=== PATIENT | male | born 1945 | race Caucasian/White ===

== ENCOUNTER → 2016-10-29 | Outpatient (CLI) | payer MEDICARE, MEDICAID ==
[~2016-10-29] MED LIST: AMBIEN10 M1 ORAL; AMBIEN10 MG PO; AMIODARONE HCL200 MG ORAL; ARICEPT10 MG PO; ASPIRIN81 M1 PO; AVODART0.5 MG ORAL; BENADRYL25 M1 PO; CLONAZEPAM0.5 MG PO; COGENTIN1 MG ORAL; COMPAZINE10 MG PO; DEPAKOTE ER500 MG PO; DIGOXIN0.25 MG/5 PO; DONEPEZIL HCL10 M2 ORAL; FLEXERIL10 MG PO; FLOMAX0.4 MG ORAL; FUROSEMIDE20 M1 ORAL; LACTULOSE20 GM/30 M PO; LATUDA60 MG PO; LIPITOR20 MG ORAL; LOPRESSOR25 M1 ORAL; METOPROLOL TART50 MG ORAL; NAMENDA5 MG ORAL; NAMENDA5 MG PO; NAPROSYN500 MG PO; OXYCODONE HCL15 M1 ORAL; PAXIL20 MG ORAL; POTASSIUM CHLO10 MEQ ORAL; PRAVASTATIN SOD80 MG PO; QUETIAPINE FUM200 MG PO; SINEMET 25-1001 EAC1 ORAL; SINEMET 25/1001 EA ORAL; TAMSULOSIN HCL0.4 MG ORAL; TEMAZEPAM30 MG ORAL; VESICARE5 MG ORAL; WELCHOL625 MG ORAL; XARELTO10 MG ORAL
--- NOTE | 2016-10-29 16:53 | Diagnostic Imaging Report ---
Indication: COUGH Technique: 2 views of the chest Comparison: 07/28/2014. Findings: Lungs and pleural spaces are clear. Heart size is normal. Bones are unremarkable.. Impression: No acute process No significant change
== END | disposition home or self-care (01) ==
LOC: RAD 15:47
DX: R05 Cough (principal)
CPT/HCPCS: 71020

== ENCOUNTER 2017-12-31 05:54 | Observation (INO) | payer MEDICARE, MEDICAID ==
--- NOTE | 2017-12-24 11:46 | Diagnostic Imaging Report ---
Indication: Cough Comparison: 10/29/2016 2 views of the chest obtained. Findings: Cardiomediastinal silhouette and pulmonary vascularity are within normal limits for age. The diaphragmatic contour is smooth and costophrenic angles are sharp. No pleural effusions are identified. The bones are unremarkable. Impression: No acute disease
[~2017-12-31] VITALS: Ht 165.1 cm; Wt 57.6 kg
[2017-12-31] VITALS (11 sets, daily range): BP systolic 90–119; BP diastolic 41–85
--- NOTE | 2017-12-31 06:28 | Anethesia Preoperative Eval ---
Anesthesia Pre-op PMH/ROS General Date of Evaluation: December 31, 2017 Anesthesiologist: Moe ASA Score: ASA 3 Mallampati Score Class I : Soft palate, uvula, fauces, pillars visible Class II: Soft palate, uvula, fauces visible Class III: Soft palate, base of uvula visible Class IV: Only hard plate visible Mallampati Classification: Class II Surgeon: Geraldo Diagnosis: Bilateral inguinal hernias Surgical Procedure: Bilateral inguinal hernia repair Anesthesia History: none Family History: no anesthesia problems Allergies: Coded Allergies: No Known Allergies (Verified , 06/21/07) Medications: see eMAR Past Medical History Cardiovascular: Reports: HTN, arrhythmia - Afib, aortic valve, other - CHF, HLD ; Denies: CAD, ID, valve dz Pulmonary: Denies: asthma, COPD, WES, other Gastrointestinal/Genitourinary: Reports: GERD; Denies: CRI, ESRD, other Neurologic/Psychiatric: Reports: dementia, depression/anxiety; Denies: CVA, TIA, other Endocrine: Denies: DM, hypothyroidism, steroids, other HEENT: Denies: cataract (L), cataract (R), glaucoma, [place] (L), [place] (R), other Hematology/Immune: Reports: anemia - chronic; Denies: DVT, bleeding disorder, other Musculoskeletal/Integumentary: Reports: OA, DJD; Denies: RA, DDD, edema, other PSxH Narrative: back sx, turp Anesthesia Pre-op Phys. Exam Physician Exam see chart Constitutional: NAD Cardiovascular: RRR Respiratory: CTA Airway Exam Mallampati Score: Class II MO: full ROM: full Teeth: missing Anesthesia Pre-op A/P Labs see chart Studies Pre-op Studies: EKG - sr Risk Assessment & Plan Assessment: ASA III Plan: GA-ETT Status Change Before Surgery: No Pre-Antibiotics Drug: Ancef 1g Given Within 1 Hr of Incision: Yes Time Given: 08:20 EDUARDO ALCANTARA M.D. December 31, 2017 06:28
[2017-12-31] MEDS ORDERED: Zemuron 50mg/5ml Inj IV ONE ×2 (06:30→08:00)
[2017-12-31] MEDS ORDERED: AMITIZA24 MCG ORAL (06:41)
[2017-12-31] MEDS ORDERED: TORSEMIDE20 MG ORAL (06:41)
[2017-12-31] MEDS ORDERED: VITAMIN D1000 UNI1 ORAL (06:41)
[2017-12-31] MEDS ORDERED: SERTRALINE HCL25 MG ORAL (06:41)
[2017-12-31] MEDS ORDERED: LYRICA75 M1 ORAL (06:41)
[2017-12-31] MEDS ORDERED: DICYCLOMINE HCL10 MG PO (06:41)
[2017-12-31 07:32] LABS: BASOPHILS % (AUTO) 1.2 % (0.0-2.0); EOSINOPHILS % (AUTO) 3.1 % (0.0-3.0); HEMATOCRIT 34.8 % (42.0-52.0); HEMOGLOBIN 11.6 G/DL (14.2-18.0); LYMPHOCYTES % (AUTO) 31.9 % (20.0-45.0); MEAN CORPUSCULAR VOLUME 95 FL (80-99); MONOCYTES % (AUTO) 12.9 % (1.0-10.0); PLATELET COUNT 173 K/UL (150-450); RED BLOOD COUNT 3.66 M/UL (4.70-6.10); RED CELL DISTRIBUTION WIDTH 11.6 % (11.6-14.8); WHITE BLOOD COUNT 6.8 K/UL (4.8-10.8)
[2017-12-31 07:37] LABS: ANION GAP 8 mmol/L (5-15); BLOOD UREA NITROGEN 30 mg/dL (7-18); CALCIUM 9.2 MG/DL (8.5-10.1); CARBON DIOXIDE 30 MMOL/L (21-32); CHLORIDE 105 MMOL/L (98-107); CREATININE 1.3 MG/DL (0.55-1.30); POTASSIUM 3.6 MMOL/L (3.5-5.1); SODIUM 143 MMOL/L (136-145)
[2017-12-31] MEDS ORDERED: EPINEPHrine 1mg/1ml Amp ONE (07:45)
[2017-12-31] MEDS ORDERED: Bupivacaine 0.5% Inj 30 ml vial INJ ONE (07:45)
[2017-12-31] MEDS ORDERED: Propofol 200mg/20ml IV ONE (07:50)
[2017-12-31] MEDS ORDERED: fentaNYL 100 mcg/2 mL IV ONE (07:50)
[2017-12-31] MEDS ORDERED: Midazolam 2mg/2ml Inj ONE (07:50)
--- NOTE | 2017-12-31 07:50 | Pre-Procedure Note/Attestation ---
Pre-Procedure Note/Attestation Complete Prior to Procedure Planned Procedure: bilateral Procedure Narrative: laparoscopic possible open bilateral inguinal hernia repair with mesh Indications for Procedure Pre-Operative Diagnosis: bilateral inguinal hernia Attestation I attest that I discussed the nature of the procedure; its benefits; risks and complications; and alternatives (and the risks and benefits of such alternatives ), prior to the procedure, with the patient (or the patient's legal maintenance representative). I attest that, if there was a reasonable possibility of needing a blood transfusion, the patient (or the patient's legal maintenance representative) was given the [facility] standardized written summary, pursuant to the [place] Blood Safety Act ([place] Health and Safety Code # 1645, as amended). I attest that I re-evaluated the patient just prior to the surgery and that there has been no change in the patient's H&P, except as documented below: Christiano Chow December 31, 2017 07:50
--- NOTE | 2017-12-31 07:56 | Consultation ---
History of Present Illness Present Illness HPI 72 year old male was referred to Dr. Chow for evaluation of groin pain. Patient has noted groin pain for sometime now L>R. Was recently visiting his PCP who noted a hernia and referred patient for evaluation by a surgeon. patient otherwise doing okay. no signs or symptoms of obstruction. no n/v/f/ c. no prior incarceration. usually reducible. pain which is a discomfort and worse some days. please refer to office not for details. Allergies: Coded Allergies: No Known Allergies (Verified , 06/21/07) Medication History Scheduled Cholecalciferol (Vitamin D3)* (Vitamin D*), 1,000 UNIT ORAL DAILY, (Reported) Dicyclomine Hcl* (Dicyclomine Hcl*), 10 MG PO QID, (Reported) Lubiprostone (Amitiza*), 24 MCG ORAL EVERY 12 HOURS, (Reported) Metoprolol Tartrate (Metoprolol Tartrate), 25 MG ORAL Q12HR, (Reported) Pregabalin* (Lyrica*), 75 MG ORAL BID, (Reported) Rivaroxaban (Xarelto*), 20 MG ORAL QPM Sertraline Hcl* (Sertraline Hcl*), 50 MG ORAL DAILY, (Reported) Torsemide* (Demadex*), 20 MG ORAL DAILY, (Reported) Scheduled PRN Temazepam* (Temazepam*), 30 MG ORAL BEDTIME PRN for Insomnia, (Reported) Discontinued Medications Carbidopa/Levodopa 25-100 Mg* (Sinemet 25-100 Mg Tablet*), 2 TAB ORAL THREE TIMES A DAY, (Reported) Discontinued Reason: MD discontinued med Furosemide* (Lasix*), 20 MG ORAL DAILY, (Reported) Discontinued Reason: MD discontinued med Tamsulosin HCl (Flomax), 0.4 MG ORAL DAILY, (Reported) Discontinued Reason: MD discontinued med Patient History History Provided By: Patient, Medical Record, Caregiver, PMD Healthcare decision maker Resuscitation status Advanced Directive on File No Past Medical/Surgical History Past Medical/Surgical History: (1) Multiple injuries due to trauma (2) Fall (3) Generalized weakness (4) Unable to ambulate (5) Generalized weakness (6) Depression (7) BPH (benign prostatic hyperplasia) (8) Altered mental status (9) Confusional state (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 (13) Proteinuria (14) Small bowel obstruction (15) UTI (urinary tract infection) (16) History of atrial fibrillation (17) Dehydration (18) SBO (small bowel obstruction) (19) Parkinson disease (20) Atrial fibrillation with RVR Review of Systems All Other Systems: negative except mentioned in HPI Physical Exam General Appearance: no apparent distress Lines, tubes and drains: peripheral HEENT: PERRL Neck: normal inspection Respiratory/Chest: lungs clear, normal breath sounds, no respiratory distress, no accessory muscle use Cardiovascular/Chest: normal peripheral pulses Abdomen: non tender, soft, no organomegaly, no mass, hernia Genitourinary/Rectal: normal genital exam Extremities: normal range of motion Skin Exam: normal pigmentation Neurologic: alert, oriented x 3 Last 24 Hour Vital Signs Date Time Temp Pulse Resp B/P (MAP) Pulse Ox O2 Delivery O2 Flow Rate FiO2 12/31/17 06:49 97.9 55 18 101/56 100 Room Air 97.9 Laboratory Tests Test 12/31/17 07:00 White Blood Count 6.8 K/UL (4.8-10.8) Red Blood Count 3.66 M/UL (4.70-6.10) L Hemoglobin 11.6 G/DL (14.2-18.0) L Hematocrit 34.8 % (42.0-52.0) L Mean Corpuscular Volume 95 FL (80-99) Mean Corpuscular Hemoglobin 31.6 PG (27.0-31.0) H Mean Corpuscular Hemoglobin Concent 33.2 G/DL (32.0-36.0) Red Cell Distribution Width 11.6 % (11.6-14.8) Platelet Count 173 K/UL (150-450) Mean Platelet Volume 7.0 FL (6.5-10.1) Neutrophils (%) (Auto) 51.0 % (45.0-75.0) Lymphocytes (%) (Auto) 31.9 % (20.0-45.0) Monocytes (%) (Auto) 12.9 % (1.0-10.0) H Eosinophils (%) (Auto) 3.1 % (0.0-3.0) H Basophils (%) (Auto) 1.2 % (0.0-2.0) Prothrombin Time Pending Prothromb Time International Ratio Pending Activated Partial Thromboplast Time Pending Sodium Level 143 MMOL/L (136-145) Potassium Level 3.6 MMOL/L (3.5-5.1) Chloride Level 105 MMOL/L (98-107) Carbon Dioxide Level 30 MMOL/L (21-32) Anion Gap 8 mmol/L (5-15) Blood Urea Nitrogen 30 mg/dL (7-18) H Creatinine 1.3 MG/DL (0.55-1.30) Estimat Glomerular Filtration Rate mL/min (>60) Glucose Level 87 MG/DL (74-106) Calcium Level 9.2 MG/DL (8.5-10.1) Height (Feet): 5 Height (Inches): 5.00 Weight (Pounds): 127 Assessment/Plan Problem List: (1) Inguinal hernia bilateral, non-recurrent Assessment & Plan: 72M with symptomatic bilateral inguinal hernia. repair indicated and recommended. seen by PCP pre op for clearance. had EGD two days ago which he stopped anticoagulants for 7 days prior. other meds taken. labs reviewed. to OR for lap vs open bilateral inguinal hernia repair with mesh consent pre op ICD Codes: K40.20 - Bilateral inguinal hernia, without obstruction or gangrene , not specified as recurrent SNOMED: [id number] Qualifiers: Qualified Codes: K40.20 - Bilateral inguinal hernia, without obstruction or gangrene, not specified as recurrent Status: stable Christiano Chow December 31, 2017 07:56
[2017-12-31] MEDS ORDERED: Sterile Water Irrig 1000ml IRRIG ONE (08:00)
[2017-12-31] MEDS ORDERED: Lidocaine 1% MPF 10mg/ml 5ml ONE (08:00)
[2017-12-31] MEDS ORDERED: NS Irrig 1000ml ONE (08:00)
[2017-12-31] MEDS ORDERED: LR 1000ml 1,000 ML IVLG SCH (08:24)
[2017-12-31] MEDS ORDERED: fentaNYL 100 mcg/2 mL IV PRN (08:30)
[2017-12-31] MEDS ORDERED: LORazepam Inj 2mg/ml 1ml IV PRN (08:30)
[2017-12-31] MEDS ORDERED: DiphenhydrAMINE 50mg/ml Inj IVP PRN (08:30)
[2017-12-31] MEDS ORDERED: NS Irrig 1000ml IRRIG ONE (08:34)
[2017-12-31] MEDS ORDERED: ceFAZolin sod 2 GM in D5W 110 ML IV SCH (09:00)
[2017-12-31] MEDS ORDERED: Bacitracin 50000 Units Vial ONE (09:15)
--- NOTE | 2017-12-31 09:49 | Immediate Post-Op Evaluation ---
Immediate Post-Op Evalulation Immediate Post-Op Evalulation Procedure: Laparoscopic bilateral inguinal hernia repairs Date of Evaluation: December 31, 2017 Time of Evaluation: 09:50 IV Fluids: 400 Blood Products: 0 Estimated Blood Loss: min Urinary Output: 0 Blood Pressure Systolic: 114 Blood Pressure Diastolic: 57 Pulse Rate: 65 Respiratory Rate: 16 O2 Sat by Pulse Oximetry: 100 Temperature (Fahrenheit): 99.3 Pain Score (1-10): 0 Nausea: No Vomiting: No Complications 0 Patient Status: awake, reacts, patent, none Hydration Status: adequate Drug: Ancef 1g Given Within 1 Hr of Incision: Yes Time Given: 08:20 EDUARDO ALCANTARA M.D. December 31, 2017 09:49
--- NOTE | 2017-12-31 11:04 | Brief Operative Note ---
Immediate Post Operative Note Operative Note Pre-op Diagnosis: bilateral inguinal hernia Procedure: lap right inguinal hernia repair with mesh Post-op Diagnosis: 1. right indirect inguinal hernia Surgeon: juan david Anesthesiologist: kanu Anesthesia: general Specimen: none Complications: none Condition: stable Fluids: see records Estimated Blood Loss: none Implant(s) used?: Yes - bard 3d fitted right sided mesh medium Christiano Chow December 31, 2017 11:04
[2017-12-31] MEDS ORDERED: Milk of Magnesia 30ml Ud ORAL PRN (11:15)
[2017-12-31] MEDS ORDERED: Morphine Sulfate 4mg/ml Inj IVP PRN (11:15)
[2017-12-31] MEDS ORDERED: Sennosides 8.6mg ORAL PRN (11:15)
[2017-12-31] MEDS: Norco 5mg/325mg tab ORAL PRN ×2 (13:00→17:15)
[2017-12-31] MEDS: ceFAZolin sod 2 GM in D5W 110 ML IV SCH (16:16)
[2017-12-31] MEDS: Docusate 100mg cap ORAL SCH (17:15)
[2017-12-31] MEDS: HYDROcodone/Acetamin 10/325 tab ORAL PRN (21:59)
--- NOTE | 2017-12-31 22:15 | Operative Note - Dictated ---
DATE OF OPERATION: 12/31/2017 PREOPERATIVE DIAGNOSIS: Bilateral inguinal hernia. POSTOPERATIVE DIAGNOSIS: Right indirect inguinal hernia. No left hernia. OPERATION PERFORMED: Laparoscopic right inguinal hernia repair with mesh. ATTENDING SURGEON: Christiano Chow M.D. CERTIFIED HEARING INSTRUMENT DISPENSER: None. ANESTHESIOLOGIST: Dr. Rosa. ANESTHESIA: General TUNNELING MACHINE OPERATOR. ESTIMATED BLOOD LOSS: Minimal. IV FLUIDS: Please see anesthesia records. COMPLICATIONS: None. WOUND CLASSIFICATION: Class 1. COUNTS: Sponge and needle count correct x2. DRAINS: None. IMPLANTS: Bard 3D mesh, right-sided, medium. INDICATIONS FOR PROCEDURE: This is a 72-year-old male, who was referred to Dr. Chow for evaluation of inguinal hernias. The patient has noted that he has felt a bulge and discomfort in the right groin for some time now and his pain has been progressively worsening and bulge is becoming larger. He saw his primary care physician, who referred him to Dr. Chow for surgical evaluation. The patient was seen in the office and identified to have a reducible right inguinal hernia and potentially a left inguinal hernia. Surgery was indicated and recommended. Plan was for a laparoscopic right inguinal hernia repair and potentially left inguinal hernia repair depending on the operative findings. If no left-sided hernia was identified, repair would not be performed. Risks, benefits, and alternatives were discussed with the patient in detail, who expressed understanding and consented to surgery. OPERATIVE NOTE: The patient was taken to the operating room and placed on the operative table in supine position with bilateral arms tucked. All bony prominences were well padded. SCDs were placed. Alanis catheter was inserted. Preoperative time-out was taken identifying the patient, procedure, operative staff, and surgical staff. General anesthesia was induced and the patient was intubated. The abdomen was clipped, prepped, and draped in standard surgical fashion. An infraumbilical incision was made using a fresh #11 scalpel and carried down to the fascia, which was elevated and incised. Entry into the abdomen was confirmed using open Ish technique without complication. Ish trocar was inserted and the abdomen was insufflated to 12 to 15 mmHg. The patient tolerated the insufflation well. The laparoscope was inserted and the abdomen was inspected. Secondary trocars were placed under direct visualization. Two 5 mm trocars were placed in the right and left mid abdomen. The patient was placed in the mild Trendelenburg and both groins were inspected. There was no left hernia identified. There was some diastasis of the lower left abdominal wall. No hernia noted. On the right side, there was an indirect hernia identified. No direct hernia or other abnormality noted. No cords or any bowel contents were noted in the hernia sac. We then began the peritoneal dissection of the peritoneum. This began from the median ligament towards the anterior superior iliac spine approximately 2 to 3 cm above proximal to the hernia sac. The peritoneal dissection was carried down to the hernia sac, which was reduced manually by the grasper retraction without difficulty or complication. Once the hernia sac was teased apart from the cord vessels and vas deferens bringing into the peritoneal space, these structures were identified. A cord lipoma was noted and reduced. At this time, good hemostasis was noted. A Bard 3D mesh, right-sided medium mesh was then brought into the operative field and placed without complication into the right groin. It was secured using 3 AbsorbaTack to the pubis and Toy's ligament and then flaying the mesh out over the cord structures and all defects. Once this was completely covered and mesh was appropriate and repair was adequate, we began closing the peritoneum with multiple AbsorbaTack placements. At this time, the abdomen was allowed to desufflate slowly while the secondary trocars were removed under direct visualization. Once all trocars were removed and the abdomen was desufflated, the umbilical fascial incision was closed using a [id number] 0 Vicryl suture, followed by closure of all skin incisions using interrupted 4-0 Monocryl subcuticular sutures. Wounds were cleansed and Steri-Strips and dressings were applied. The patient tolerated the procedure well. He was extubated and taken to the postanesthetic care unit in stable condition. Alanis would stay in given the patient's history of requiring multiple catheterizations. Both testicles were checked and noted to be in proper position at the end of procedure. Christiano Chow M.D. DR: CARISSA JOB#: [id number] CC:
[2018-01-01] VITALS: BP 94/41
[2018-01-01] MEDS: ceFAZolin sod 2 GM in D5W 110 ML IV SCH (00:16)
[2018-01-01] MEDS: HYDROcodone/Acetamin 10/325 tab ORAL PRN ×4 (02:52→15:10)
[2018-01-01 04:00] VITALS: BP 109/58
[2018-01-01 08:00] VITALS: BP 99/52
[2018-01-01 09:02] LABS: BASOPHILS % (AUTO) 0.3 % (0.0-2.0); EOSINOPHILS % (AUTO) 2.6 % (0.0-3.0); HEMATOCRIT 32.5 % (42.0-52.0); HEMOGLOBIN 10.6 G/DL (14.2-18.0); MEAN CORPUSCULAR VOLUME 96 FL (80-99); MONOCYTES % (AUTO) 9.9 % (1.0-10.0); NEUTROPHILS % (AUTO) 65.2 % (45.0-75.0); PLATELET COUNT 165 K/UL (150-450); RED BLOOD COUNT 3.38 M/UL (4.70-6.10); RED CELL DISTRIBUTION WIDTH 11.9 % (11.6-14.8); WHITE BLOOD COUNT 10.5 K/UL (4.8-10.8)
[2018-01-01] MEDS: Docusate 100mg cap ORAL SCH (09:06)
[2018-01-01 09:17] LABS: ANION GAP 8 mmol/L (5-15); BLOOD UREA NITROGEN 29 mg/dL (7-18); CALCIUM 8.8 MG/DL (8.5-10.1); CARBON DIOXIDE 29 MMOL/L (21-32); CHLORIDE 106 MMOL/L (98-107); CREATININE 1.5 MG/DL (0.55-1.30); PHOSPHORUS 3.7 MG/DL (2.5-4.9); POTASSIUM 4.1 MMOL/L (3.5-5.1); SODIUM 143 MMOL/L (136-145)
[2018-01-01 12:00] VITALS: BP 126/57
[2018-01-01 13:51] VITALS: BP 126/57
--- NOTE | 2018-01-01 13:51 | 48 Hour Post Anesthesia Eval ---
Post Anesthesia Evaluation Procedure: Laparoscopic bilateral inguinal hernia repairs Date of Evaluation: January 01, 2018 Time of Evaluation: 12:00 Blood Pressure Systolic: 126 0: 57 Pulse Rate: 62 Respiratory Rate: 18 Temperature (Fahrenheit): 97.6 O2 Sat by Pulse Oximetry: 100 Airway: patent Nausea: No Vomiting: No Hydration Status: adequate Mental Status/LOC: patient returned to baseline Post-Anesthesia Complications: none Follow-up care needed: N/A Ada Pandey M.D. January 01, 2018 13:51
[2018-01-01] MEDS ORDERED: COLACE100 MG ORAL (14:48)
[2018-01-01] MEDS ORDERED: NORCO 5-325 TA1 EACH ORAL (14:48)
--- NOTE | 2018-01-01 16:10 | General Progress Note ---
Progress Note Progress Note Surgery: doing great post op. right groin pain as anticipated. afebrile, HD stable, labs okay. wounds c/d/i. scrotum and testicles okay. no recurrence or signs of infection. -d/c julian -d/c home -rx written -f/u 2 weeks. Christiano Chow January 01, 2018 16:10
--- NOTE | 2018-01-04 13:12 | History & Physical ---
History and Physical History & Physicial [facility] General Consult Note Patient Name: Cheo Castillo Unit Number: [id number] Date of : 1945 Patient Status: Discharged Inpatient (obs) Attending Doctor: Christiano Chow HPI History of Present Illness Present Illness HPI 72 year old male was referred to Dr. Chow for evaluation of groin pain. Patient has noted groin pain for sometime now L>R. Was recently visiting his PCP who noted a hernia and referred patient for evaluation by a surgeon. patient otherwise doing okay. no signs or symptoms of obstruction. no n/v/f/ c. no prior incarceration. usually reducible. pain which is a discomfort and worse some days. please refer to office not for details. Allergies: Coded Allergies: No Known Allergies (Verified , 06/21/07) Medication History Scheduled Cholecalciferol (Vitamin D3)* (Vitamin D*), 1,000 UNIT ORAL DAILY, (Reported) Dicyclomine Hcl* (Dicyclomine Hcl*), 10 MG PO QID, (Reported) Lubiprostone (Amitiza*), 24 MCG ORAL EVERY 12 HOURS, (Reported) Metoprolol Tartrate (Metoprolol Tartrate), 25 MG ORAL Q12HR, (Reported) Pregabalin* (Lyrica*), 75 MG ORAL BID, (Reported) Rivaroxaban (Xarelto*), 20 MG ORAL QPM Sertraline Hcl* (Sertraline Hcl*), 50 MG ORAL DAILY, (Reported) Torsemide* (Demadex*), 20 MG ORAL DAILY, (Reported) Scheduled PRN Temazepam* (Temazepam*), 30 MG ORAL BEDTIME PRN for Insomnia, (Reported) Discontinued Medications Carbidopa/Levodopa 25-100 Mg* (Sinemet 25-100 Mg Tablet*), 2 TAB ORAL THREE TIMES A DAY, (Reported) Discontinued Reason: MD discontinued med Furosemide* (Lasix*), 20 MG ORAL DAILY, (Reported) Discontinued Reason: MD discontinued med Tamsulosin HCl (Flomax), 0.4 MG ORAL DAILY, (Reported) Discontinued Reason: MD discontinued med Patient History History Provided By: Patient, Medical Record, Caregiver, PMD Healthcare decision maker Resuscitation status Advanced Directive on File No Past Medical/Surgical History Past Medical/Surgical History: (1) Multiple injuries due to trauma (2) Fall (3) Generalized weakness (4) Unable to ambulate (5) Generalized weakness (6) Depression (7) BPH (benign prostatic hyperplasia) (8) Altered mental status (9) Confusional state (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 (13) Proteinuria (14) Small bowel obstruction (15) UTI (urinary tract infection) (16) History of atrial fibrillation (17) Dehydration (18) SBO (small bowel obstruction) (19) Parkinson disease (20) Atrial fibrillation with RVR ROS Review of Systems All Other Systems: negative except mentioned in HPI Physical Exam Physical Exam General Appearance: no apparent distress Lines, tubes and drains: peripheral HEENT: PERRL Neck: normal inspection Respiratory/Chest: lungs clear, normal breath sounds, no respiratory distress, no accessory muscle use Cardiovascular/Chest: normal peripheral pulses Abdomen: non tender, soft, no organomegaly, no mass, hernia Genitourinary/Rectal: normal genital exam Extremities: normal range of motion Skin Exam: normal pigmentation Neurologic: alert, oriented x 3 Last 24 Hour Vital Signs Date Time Temp Pulse Resp B/P (MAP) Pulse Ox O2 Delivery O2 Flow Rate FiO2 12/31/17 06:49 97.9 55 18 101/56 100 Room Air 97.9 Laboratory Tests Test 12/31/17 07:00 White Blood Count 6.8 K/UL (4.8-10.8) Red Blood Count 3.66 M/UL (4.70-6.10) L Hemoglobin 11.6 G/DL (14.2-18.0) L Hematocrit 34.8 % (42.0-52.0) L Mean Corpuscular Volume 95 FL (80-99) Mean Corpuscular Hemoglobin 31.6 PG (27.0-31.0) H Mean Corpuscular Hemoglobin Concent 33.2 G/DL (32.0-36.0) Red Cell Distribution Width 11.6 % (11.6-14.8) Platelet Count 173 K/UL (150-450) Mean Platelet Volume 7.0 FL (6.5-10.1) Neutrophils (%) (Auto) 51.0 % (45.0-75.0) Lymphocytes (%) (Auto) 31.9 % (20.0-45.0) Monocytes (%) (Auto) 12.9 % (1.0-10.0) H Eosinophils (%) (Auto) 3.1 % (0.0-3.0) H Basophils (%) (Auto) 1.2 % (0.0-2.0) Prothrombin Time Pending Prothromb Time International Ratio Pending Activated Partial Thromboplast Time Pending Sodium Level 143 MMOL/L (136-145) Potassium Level 3.6 MMOL/L (3.5-5.1) Chloride Level 105 MMOL/L (98-107) Carbon Dioxide Level 30 MMOL/L (21-32) Anion Gap 8 mmol/L (5-15) Blood Urea Nitrogen 30 mg/dL (7-18) H Creatinine 1.3 MG/DL (0.55-1.30) Estimat Glomerular Filtration Rate mL/min (>60) Glucose Level 87 MG/DL (74-106) Calcium Level 9.2 MG/DL (8.5-10.1) Height (Feet): 5 Height (Inches): 5.00 Weight (Pounds): 127 Assessment/Plan Assessment/Plan Problem List: (1) Inguinal hernia bilateral, non-recurrent Assessment & Plan: 72M with symptomatic bilateral inguinal hernia. repair indicated and recommended. seen by PCP pre op for clearance. had EGD two days ago which he stopped anticoagulants for 7 days prior. other meds taken. labs reviewed. to OR for lap vs open bilateral inguinal hernia repair with mesh consent pre op ICD Codes: K40.20 - Bilateral inguinal hernia, without obstruction or gangrene , not specified as recurrent SNOMED: [id number] Qualifiers: Qualified Codes: K40.20 - Bilateral inguinal hernia, without obstruction or gangrene, not specified as recurrent Status: stable Christiano Chow December 31, 2017 07:56 Christiano Chow January 04, 2018 13:12
--- NOTE | 2018-01-04 14:06 | Cardiology Report ---
APPROVED REPORT EKG Measurement Heart [id number] ME [id number] Sinus bradycardia with 1st degree AV block Nonspecific ST abnormality Abnormal ECG
== END 2018-01-01 15:41 | disposition home or self-care (01) ==
LOC: SUR 05:54 → 4E 12:21
DX: K40.40 Unilateral inguinal hernia, with gangrene, not specified as recurrent (principal); I44.0 Atrioventricular block, first degree; R00.1 Bradycardia, unspecified; I11.0 Hypertensive heart disease with heart failure; I50.9 Heart failure, unspecified; F03.90 Unspecified dementia, unspecified severity, without behavioral disturbance, psychotic disturbance, mood disturbance, and anxiety; F32.9 Major depressive disorder, single episode, unspecified; F41.9 Anxiety disorder, unspecified; E78.5 Hyperlipidemia, unspecified; M19.90 Unspecified osteoarthritis, unspecified site; G20 Parkinson's disease; Z91.81 History of falling; Z86.73 Personal history of transient ischemic attack (TIA), and cerebral infarction without residual deficits
CPT/HCPCS: 36415 ×2; 49650; 71046; 80048 ×2; 83735; 84100; 85025 ×2; 85610; 85730; 93005; 96360; 96365; 97161; 97165; 97535; C1781; G0378 ×2; J0171; J0690; J1170; J2250; J2704; J3010; J3490; 94003; 94150

== ENCOUNTER 2020-01-26 06:28 | Day surgery (SDC) | payer MEDICARE, MEDICAID ==
[2020-01-26] VITALS (13 sets, daily range): BP systolic 98–143; BP diastolic 58–87
[~2020-01-26] VITALS: Ht 165.1 cm; Wt 61.7 kg
[~2020-01-26 06:28] MED LIST changes: +AMITIZA24 MCG ORAL; +COLACE100 MG ORAL; +DICYCLOMINE HCL10 MG PO; +LYRICA75 M1 ORAL; +NORCO 5-325 TA1 EACH ORAL; +SERTRALINE HCL25 MG ORAL; +TORSEMIDE20 MG ORAL; +VITAMIN D1000 UNI1 ORAL
[2020-01-26] MEDS ORDERED: LINZESS145 MCG PO (07:04)
[2020-01-26] MEDS ORDERED: VITAMIN D310 MCG ORAL (07:04)
[2020-01-26] MEDS ORDERED: POTASSIUM600 M1 PO (07:04)
[2020-01-26] MEDS ORDERED: TORSEMIDE20 MG ORAL (07:04)
[2020-01-26] MEDS ORDERED: FLOMAX0.4 MG ORAL (07:04)
[2020-01-26] MEDS ORDERED: Midazolam 2mg/2ml Inj ONE (07:10)
[2020-01-26] MEDS ORDERED: fentaNYL 100 mcg/2 mL IV ONE ×2 (07:11→08:39)
[2020-01-26] MEDS ORDERED: Rocuronium Bromide 100mg/10ml Inj IV ONE (07:22)
[2020-01-26] MEDS ORDERED: Iothalamate Meglumine 60% 30ML INJ ONE (07:29)
[2020-01-26] MEDS ORDERED: NS Irrig 1000ml ONE (07:30)
[2020-01-26] MEDS ORDERED: Sterile Water Irrig 1000ml IRRIG ONE (07:30)
[2020-01-26] MEDS ORDERED: LR 1000ml ONE (07:30)
--- NOTE | 2020-01-26 07:46 | Pre-Procedure Note/Attestation ---
Pre-Procedure Note/Attestation Complete Prior to Procedure Planned Procedure: not applicable Procedure Narrative: laparoscopic cholecystectomy possible open Indications for Procedure Pre-Operative Diagnosis: symptomatic cholelithiasis Attestation I attest that I discussed the nature of the procedure; its benefits; risks and complications; and alternatives (and the risks and benefits of such alternatives ), prior to the procedure, with the patient (or the patient's legal financial service representative). I attest that, if there was a reasonable possibility of needing a blood transfusion, the patient (or the patient's legal financial service representative) was given the [facility] standardized written summary, pursuant to the [place] Blood Safety Act ([place] Health and Safety Code # 1645, as amended). I attest that I re-evaluated the patient just prior to the surgery and that there has been no change in the patient's H&P, except as documented below: Christiano Chow Jan 26, 2020 07:46
--- NOTE | 2020-01-26 07:49 | Anethesia Preoperative Eval ---
Anesthesia Pre-op PMH/ROS General Date of Evaluation: Jan 26, 2020 Time of Evaluation: 07:30 Anesthesiologist: teetee ASA Score: ASA 3 Mallampati Score Class I : Soft palate, uvula, fauces, pillars visible Class II: Soft palate, uvula, fauces visible Class III: Soft palate, base of uvula visible Class IV: Only hard plate visible Mallampati Classification: Class II Surgeon: Geraldo Diagnosis: Cholelithiasis Surgical Procedure: Lap Nya Anesthesia History: none Family History: no anesthesia problems Allergies: Coded Allergies: No Known Allergies (Verified , 06/21/07) Medications: see eMAR Patient NPO?: Yes NPO Date: Jan 26, 2020 NPO Time: 00:01 Past Medical History Cardiovascular: Reports: HTN, CAD, valve dz, arrhythmia Pulmonary: Denies: asthma, COPD, WES, other Gastrointestinal/Genitourinary: Reports: GERD; Denies: CRI, ESRD, other Neurologic/Psychiatric: Denies: dementia, CVA, depression/anxiety, TIA, other Endocrine: Denies: DM, hypothyroidism, steroids, other HEENT: Denies: cataract (L), cataract (R), glaucoma, [place] (L), [place] (R), other Hematology/Immune: Reports: anemia, DVT; Denies: bleeding disorder, other Musculoskeletal/Integumentary: Reports: DJD, other - advanced aged; Denies: OA, RA, DDD, edema Other: other - chronic pain PSxH Narrative: TURP; Back surgery Anesthesia Pre-op Phys. Exam Physician Exam Last Vital Signs Date Time Temp Pulse Resp B/P (MAP) Pulse Ox O2 Delivery O2 Flow Rate FiO2 01/26/20 07:06 Room Air 01/26/20 06:55 97.2 69 18 109/72 100 Constitutional: NAD Neurologic: CN 2-12 intact Cardiovascular: RRR Respiratory: CTA Gastrointestinal: S/NT/ND Airway Exam Mallampati Classification 2 Mallampati Score: Class II MO: limited ROM: limited Teeth: missing, broken Anesthesia Pre-op A/P Studies Pre-op Studies: EKG - afib Risk Assessment & Plan Assessment: denies cp; sob - mild due to chronic pain Plan: general Pre-Antibiotics Drug: ancef Given Within 1 Hr of Incision: Yes Time Given: 07:55 Hui Mejia COMPUTER HARDWARE ENGINEER Jan 26, 2020 07:49
--- NOTE | 2020-01-26 07:51 | Consultation ---
History of Present Illness General Date patient seen: Jan 26, 2020 Present Illness HPI 74M well known to me who presented to the office pre COVID c/o worsening abd pain. has had for some time now and discussed with his pcp and medical doctors. symptoms had been contributed to work up imaging diagnosis of cholelithiasis. pain with oral intake. nausea. cramping discomfort. ruq pain. was referred to me for evaluation of symptomatic cholelithiasis. states pain has been worsening in character for the past few months. Allergies: Coded Allergies: No Known Allergies (Verified , 06/21/07) COVID-19 Screening Contact w/high risk pt: No Recent Travel to affected area: No Experienced COVID-19 symptoms?: No Medication History Scheduled Cholecalciferol (Vitamin D3)* (Vitamin D*), 1,000 UNIT ORAL DAILY, (Reported) Linaclotide (Linzess), 145 MCG PO BID, (Reported) Metoprolol Tartrate (Metoprolol Tartrate), 25 MG ORAL Q12HR, (Reported) Potassium Gluconate (Potassium), 20 MEQ PO DAILY, (Reported) Tamsulosin HCl (Flomax), 0.4 MG ORAL DAILY, (Reported) Torsemide* (Demadex*), 20 MG ORAL DAILY, (Reported) Vitamin D (Vitamin D3), 5,000 INTLU ORAL DAILY, (Reported) Scheduled PRN Temazepam* (Temazepam*), 30 MG ORAL BEDTIME PRN for Insomnia, (Reported) Discontinued Medications Dicyclomine Hcl* (Dicyclomine Hcl*), 10 MG PO QID, (Reported) Discontinued Reason: Pt stopped taking med Docusate Sodium* (Colace*), 100 MG ORAL TWICE A DAY, (Reported) Discontinued Reason: Pt stopped taking med Hydrocodone Bit/Acetaminophen 5-325* ([place] 5-325*), 1 TAB ORAL Q6H PRN for For Pain, (Reported) Discontinued Reason: MD discontinued med Lubiprostone (Amitiza*), 24 MCG ORAL EVERY 12 HOURS, (Reported) Discontinued Reason: MD discontinued med Pregabalin* (Lyrica*), 75 MG ORAL BID, (Reported) Discontinued Reason: MD discontinued med Rivaroxaban (Xarelto*), 20 MG ORAL QPM Discontinued Reason: MD discontinued med Sertraline Hcl* (Sertraline Hcl*), 50 MG ORAL DAILY, (Reported) Discontinued Reason: MD discontinued med Torsemide* (Demadex*), 20 MG ORAL DAILY, (Reported) Discontinued Reason: MD discontinued med Patient History History Provided By: Patient Healthcare decision maker Resuscitation status Advanced Directive on File No Past Medical/Surgical History Past Medical/Surgical History: (1) Dehydration (2) Generalized weakness (3) Generalized weakness (4) Confusional state (5) Depression (6) Parkinson disease (7) Proteinuria (8) Small bowel obstruction (9) SBO (small bowel obstruction) (10) UTI (urinary tract infection) (11) Altered mental status (12) Fall (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 (14) History of atrial fibrillation (15) BPH (benign prostatic hyperplasia) (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 (17) Unable to ambulate (18) Atrial fibrillation with RVR (19) 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 (20) Multiple injuries due to trauma (21) Inguinal hernia bilateral, non-recurrent Review of Systems Review of Symptoms General ROS: no weight loss or fever Psychological ROS: no depression or mood changes, no memory loss Ophthalmic ROS: no visual changes or eye irritation ENT ROS: no nasal congestion, hearing loss, dizziness Allergy and Immunology ROS: no allergic symptoms or urticaria Hematological and Lymphatic ROS: no swollen glands, unusual bleeding or bruising Endocrine ROS: no polyuria, polydipsia, weight changes, temperature intolerance Respiratory ROS: no cough, shortness of breath, or wheezing Cardiovascular ROS: no chest pain or dyspnea on exertion Gastrointestinal ROS: denies abdominal pain, bright red blood in stool. Musculoskeletal ROS: no myalgias or arthralgias Neurological ROS: no TIA or stroke symptoms Dermatological ROS: no new or changing skin lesions, rashes or pruritis Physical Exam Physical Exam General appearance: alert, cooperative, no distress, appears stated age Head: Normocephalic, without obvious abnormality, atraumatic Eyes: conjunctivae/corneas clear. PERRL, EOM's intact. Fundi benign Throat: Lips, mucosa, and tongue normal. Teeth and gums normal Neck: supple, symmetrical, trachea midline, no adenopathy, thyroid: not enlarged, symmetric, no tenderness/mass/nodules, no carotid bruit and no JVD Lungs: clear to auscultation bilaterally Heart: regular rate and rhythm, S1, S2 normal, no murmur, click, rub or gallop Abdomen: soft, non-tender. Bowel sounds normal. No masses, no organomegaly Extremities: extremities normal, atraumatic, no cyanosis or edema Pulses: 2+ and symmetric Skin: Skin color, texture, turgor normal. No rashes or lesions Neurologic: Grossly normal Last 24 Hour Vital Signs Date Time Temp Pulse Resp B/P (MAP) Pulse Ox O2 Delivery O2 Flow Rate FiO2 01/26/20 07:06 Room Air 01/26/20 06:55 97.2 69 18 109/72 100 Room Air Height (Feet): 5 Height (Inches): 5.00 Weight (Pounds): 136 Assessment/Plan Problem List: (1) Symptomatic cholelithiasis Assessment & Plan: extensive discussions had with patient and career services director in the office prior. given symptoms, work up findings possible differential cholelithiasis symptomatic. most symptoms consistent but somewhat atypical at times. in discussion options including surgical and non surgical we concluded that given his discomfort considerations for lap aaron vs open risks benefits and alternatives discussed extensive pre op work up and clearance done by pcp and head up operator helper. surgery scheduled but given covid put on hold since has been having same symptoms and now is ready for surgery npo iv fluids abx consent to OR ICD Codes: K80.20 - Calculus of gallbladder without cholecystitis without obstruction SNOMED: [id number], [id number] Christiano Chow Jan 26, 2020 07:51
[2020-01-26] MEDS ORDERED: fentaNYL 100 mcg/2 mL IV PRN (08:00)
[2020-01-26] MEDS ORDERED: Lidocaine 1% MPF 10mg/ml 5ml ONE (08:11)
[2020-01-26] MEDS ORDERED: Neostigmine 1mg/ml 10ml Inj ONE (08:29)
[2020-01-26] MEDS ORDERED: Phenylephrine 10mg/ml Vial ONE (08:29)
[2020-01-26] MEDS ORDERED: Glycopyrrolate 0.2mg/ml 1ml Vial ONE (08:29)
[2020-01-26] MEDS ORDERED: Esmolol 100mg/10ml Inj ONE (08:49)
--- NOTE | 2020-01-26 09:06 | Brief Operative Note ---
Immediate Post Operative Note Operative Note Pre-op Diagnosis: symptomatic cholelithiasis Procedure: lap aaron Post-op Diagnosis: same as pre-op Surgeon: juan david Anesthesiologist: sabra Anesthesia: general, local Specimen: yes Complications: none Condition: stable Fluids: see Estimated Blood Loss: minimal Drains: none Implant(s) used?: No Christiano Chow Jan 26, 2020 09:06
[2020-01-26] MEDS ORDERED: HYDROmorphone 1mg/ml Carpuject SUBQ PRN (09:15)
[2020-01-26] MEDS ORDERED: Labetalol 5mg/ml 20ml vial IV PRN (09:15)
[2020-01-26] MEDS ORDERED: D5 1/2NS 1,000 ML IV SCH (09:15)
[2020-01-26] MEDS ORDERED: Tylenol #3 tab (300mg/30mg) ORAL PRN (09:15)
[2020-01-26] MEDS ORDERED: HYDROcodone/Acetamin 5/325 tab ORAL PRN (09:15)
--- NOTE | 2020-01-26 09:15 | Immediate Post-Op Evaluation ---
Immediate Post-Op Evalulation Immediate Post-Op Evalulation Procedure: lap aaron Date of Evaluation: Jan 26, 2020 Time of Evaluation: 09:12 IV Fluids: 800 Blood Pressure Systolic: 139 Blood Pressure Diastolic: 40 Pulse Rate: 105 Respiratory Rate: 14 O2 Sat by Pulse Oximetry: 100 Temperature (Fahrenheit): 98.3 Nausea: No Vomiting: No Patient Status: awake, reacts, patent Hydration Status: adequate Drug: ancef Given Within 1 Hr of Incision: Yes Time Given: 07:55 Hui Mejia CRNA Jan 26, 2020 09:15
[2020-01-26] MEDS ORDERED: Ketorolac 30mg Inj IV PRN (09:45)
[2020-01-26] MEDS ORDERED: Hydromorphone 0.5mg/0.5ml inj IVP PRN (09:45)
--- NOTE | 2020-01-26 13:57 | 48 Hour Post Anesthesia Eval ---
Post Anesthesia Evaluation Procedure: lap aaron Date of Evaluation: Jan 26, 2020 Time of Evaluation: 13:57 Blood Pressure Systolic: 114 0: 68 Pulse Rate: 101 Respiratory Rate: 14 Airway: patent Nausea: No Vomiting: No Hydration Status: adequate Cardiopulmonary Status: stable Mental Status/LOC: patient returned to baseline Follow-up Care/Observations: na Post-Anesthesia Complications: none Follow-up care needed: N/A Hui Mejia CRNA Jan 26, 2020 13:57
--- NOTE | 2020-01-26 19:00 | Operative Note - Dictated ---
DATE OF OPERATION: 01/26/2020 PREOPERATIVE DIAGNOSIS: Symptomatic cholelithiasis. POSTOPERATIVE DIAGNOSIS: Symptomatic cholelithiasis, chronic cholecystitis. OPERATION PERFORMED: Laparoscopic cholecystectomy. ATTENDING SURGEON: Christiano Chow MD. MANAGER MALL: None. ANESTHESIOLOGIST: Hui Mejia CRNA ANESTHESIA: General GETA plus local. ESTIMATED BLOOD LOSS: Minimal. IV FLUIDS: Please see anesthesia records. COMPLICATIONS: None. DRAINS: None. COUNTS: Sponge and needle count correct x2. SPECIMENS: Gallbladder and contained stone sent to pathology for review. WOUND CLASSIFICATION: Class III. INDICATIONS FOR PROCEDURE: This is a 74-year-old male, well known to me from prior care plans, who was referred by his primary care physician for evaluation of abdominal pain. The patient has been complaining of abdominal pain for some time now and worsening over the past few months at which time workup was performed by his astute primary physician demonstrating cholelithiasis with the patient's symptoms being consistent with potential symptomatic cholelithiasis, though somewhat atypical with some of the symptoms. He was referred to me and seen in the office and after long discussion with him and his caregiver regards to the observational findings, clinical history, and imaging results differential did include symptomatic cholelithiasis as the patient's etiology of his atypical abdominal pain including intermittent abdominal pain with oral intake and right upper quadrant with radiation to the back. The patient states making him miserable and he states understand the potential of continued pain despite surgical intervention. Risks, benefits, and alternatives were discussed. Consent was obtained and preop workup was completed by the patient's primary care physician as well as his pathology supervisor and clearances were obtained. The patient initially scheduled for pre-COVID but this surgery required delay until safe currently COVID negative and all precautions taken and proceeded with procedure. OPERATIVE NOTE: The patient was taken to the operating room and placed on the operating table in supine position with bilateral arms out. All bony prominences well padded. SCDs placed. Preoperative time-out taken identifying the patient, procedure, operative staff, and surgical staff. No Alanis catheter was inserted given the patient voided prior to entering the operating room. Preoperative antibiotics were given one hour prior to cut time. General anesthesia was induced. The patient was intubated. The abdomen was clipped, prepped, and draped in standard surgical fashion. Local anesthetic was infiltrated in proposed skin incisions. An infraumbilical skin incision was made and carried down through the skin and subcutaneous tissue into the fascia, which was elevated and incised. Entry into the abdomen obtained using open Ish technique. No complications from initial trocar placement noted. The abdomen was insufflated to 12 to 15 mmHg. The patient tolerated the insufflation well. Laparoscope was inserted and the abdomen was inspected. No injury from initial trocar placement noted. In inspecting the abdomen, the right lower quadrant, left lower quadrant, and pelvis were otherwise normal. The portions of the bowel that could be visualized were otherwise normal. No significant adhesions noted. The liver did have some chronic disease given his age, otherwise normal. Stomach otherwise normal. In the right upper quadrant, there was omentum overlying the gallbladder. Secondary trocars placed under direct visualization beginning with a 12 mm subxiphoid followed by two 5 mm right subcostal. Laparoscopic instruments were inserted and the omentum was gently dissected off the gallbladder and the gallbladder was identified. It was noted to be thickened wall with signs of chronic cholecystitis and there was some fluid in the right upper quadrant underneath the gallbladder and liver bed. The gallbladder was grasped at the dome using most lateral retractor and retracted over the liver. The infundibulum was gently dissected out and the critical view was obtained identifying the cystic duct and artery without complication. The cystic artery was doubly clipped and divided. The only remaining structure entering the infundibulum was the cystic duct. Cystic duct was doubly clipped and divided. The gallbladder was taken off the liver peritoneal attachments using electrocautery, placed in endoscopic retrieval bag and removed from the abdomen using subxiphoid port site. The liver bed was irrigated and hemostasis obtained with electrocautery. The clips for the cystic artery and duct were intact. No bleeding or leakage of bile identified. Right upper quadrant was irrigated and suctioned clear. At this time, successful cholecystectomy without complication was performed. We began the conclusion of our procedure. The patient placed in flat position again. Secondary trocars removed under direct visualization followed by the umbilical trocar site. The umbilical trocar site fascia and the subxiphoid trocar site fascia were reapproximated with [id number] #0 Vicryl sutures. Skin incisions were reapproximated using 4-0 Monocryl subcuticular interrupted sutures. Skin glue and Steri-Strips were applied. Local anesthetic infiltrated throughout the procedure for the patient's comfort. The patient tolerated the procedure well, was extubated and taken to postanesthetic care unit in stable condition and discharged home. Christiano Chow M.D. DR: Taryn JOB#: [id number] CC:
== END 2020-01-26 11:20 | disposition home or self-care (01) ==
LOC: SUR 06:28
DX: K80.10 Calculus of gallbladder with chronic cholecystitis without obstruction (principal); K76.9 Liver disease, unspecified; Z79.899 Other long term (current) drug therapy; G20 Parkinson's disease; I11.9 Hypertensive heart disease without heart failure; I25.10 Atherosclerotic heart disease of native coronary artery without angina pectoris; K21.9 Gastro-esophageal reflux disease without esophagitis; Z86.718 Personal history of other venous thrombosis and embolism; M19.90 Unspecified osteoarthritis, unspecified site
CPT/HCPCS: 47562; 94003; J0690; J1170; J1885; J2250; J2370; J2405; J2704; J2710; J3010; J7120; 94150